=== PATIENT | female | born 1985 | race Caucasian/White ===

== ENCOUNTER 2020-10-27 19:16 | Emergency (ER) | payer OTHER ==
[~2020-10-27] VITALS: Ht 162.6 cm; Wt 136.1 kg
[~2020-10-27 19:16] MED LIST: FLEXERIL PO
[2020-10-27] MEDS ORDERED: NORCO 5-325 TA1 EAC2 PO (21:35)
[2020-10-27 22:31] VITALS: BP 150/67
== END 2020-10-27 22:32 | disposition home or self-care (01) ==
LOC: M.ERS 19:16
DX: S99.811A Other specified injuries of right ankle, initial encounter (principal); M25.471 Effusion, right ankle; Z90.89 Acquired absence of other organs; Z98.890 Other specified postprocedural states; Z88.1 Allergy status to other antibiotic agents; W18.39XA Other fall on same level, initial encounter; Y93.89 Activity, other specified; Y92.89 Other specified places as the place of occurrence of the external cause; Y99.8 Other external cause status